=== PATIENT | male | born 1995 | race African-American/Black ===

== ENCOUNTER 2017-11-13 14:26 | Emergency (ER) | payer SELFPAY ==
[2017-11-13 14:34] VITALS: BP 134/75; PULSE 80; TEMP 98.5; BMI 21.7
--- NOTE | 2017-11-13 15:03 | PDOC ---
History of Present Illness - General Chief Complaint: Chest Pain Stated Complaint: CHEST PAIN Time Seen by Provider: 11/13/17 14:43 History Source: Patient Exam Limitations: No Limitations - History of Present Illness Initial Comments: 11/13/17 14:57 This is a 22-year-old male without medical history who presents to emergency department with a brief episode of midsternal chest pain while walking in the cold. Patient states the pain worsens when he took a deep breath. Was at this point he activated EMS to come to the emergency department for evaluation. Since his arrival in the emergency department the pain is decreased and he now rates the pain 2/10 and describes as "a thumbtack is being stuck into my chest. " He denies feeling short of breath at the time. He continues to deny shortness of breath, fevers, chills, nausea, vomiting, diaphoresis, abdominal pain. Past medical history: Denies Past surgical history: Denies NKDA Tobacco: 3 cigarettes daily EtOH: Denies Illicits: Denies Timing/Duration: reports: just prior to arrival Past History - Past Medical History Allergies/Adverse Reactions: Allergies Allergy/AdvReac Type Severity Reaction Status Date / Time No Known Allergies Allergy Verified 11/13/17 14:34 Home Medications: Ambulatory Orders NK [No Known Home Medication] 11/13/17 COPD: No - Suicide/Smoking/Psychosocial Hx Smoking History: Never smoked Hx Alcohol Use: Yes (SOCIAL) Drug/Substance Use Hx: No Substance Use Type: None Review of Systems - Review of Systems Able to Perform ROS?: Yes Is the patient limited O[place]i proficient: No Constitutional: No: Symptoms Reported Respiratory: No: Symptoms reported ABD/GI: No: Symptoms Reported : No: Symptoms Reported Musculoskeletal: No: Symptoms Reported Integumentary: No: Symptoms Reported Neurological: No: Symptoms reported *Physical Exam - Vital Signs Last Vital Signs Temp Pulse Resp BP Pulse Ox 98.5 F 80 20 134/75 100 11/13/17 14:29 11/13/17 14:29 11/13/17 14:29 11/13/17 14:29 11/13/17 14:29 - Physical Exam General Appearance: Yes: Appropriately Dressed. No: Apparent Distress HEENT: positive: LEXY, Normal ENT Inspection Neck: positive: Trachea midline, Supple Respiratory/Chest: positive: Lungs Clear, Normal Breath Sounds. negative: Respiratory Distress, Accessory Muscle Use Cardiovascular: positive: Regular Rhythm, Regular Rate, S1, S2. negative: Edema , Murmur Gastrointestinal/Abdominal: positive: Normal Bowel Sounds, Soft. negative: Tender Musculoskeletal: positive: Normal Inspection. negative: CVA Tenderness Extremity: positive: Normal Capillary Refill, Normal Inspection, Normal Range of Motion Integumentary: positive: Normal Color, Dry, Warm Neurologic: positive: manager supply II-XII NML intact, Fully Oriented, Alert, Normal Mood/ Affect, Normal Response, Motor Strength 5/5 Medical Decision Making - Medical Decision Making 11/13/17 15:00 A/P: This is a 22-year-old male without medical history who presents to emergency department with a brief episode of midsternal chest pain while walking in the cold. Patient states the pain worsens when he took a deep breath. Was at this point he activated EMS to come to the emergency department for evaluation. Since his arrival in the emergency department the pain is decreased and he now rates the pain 2/10 and describes as "a thumbtack is being stuck into my chest. " He denies feeling short of breath at the time. He continues to deny shortness of breath, fevers, chills, nausea, vomiting, diaphoresis, abdominal pain. Examination the oropharynx reveals clear without any erythema or exudates. Lungs clear to auscultation bilaterally. Chest is nontender. RRR. S1 and S2 are present. No murmurs, rub or gallop noted. Normoactive bowel sounds. Abdomen soft nontender nondistended. Differential diagnoses include pneumonia, bronchitis, atypical chest pain EKG as read by me: Normal sinus rhythm at a rate of 85. Pneumonia bronchitis a low in the differential given the patient is afebrile and is not coughing. I'll perform a chest x-ray. After x-rays read I will reevaluate the patient with likely discharge. Smoking cessation counseling offer to patient who currently refuses at this time. Patient states she is unwilling to quit at this time is recommended that he be's with his primary doctor should he choose to wait smoking and needs help. 11/13/17 15:14 Chest x-ray as read by Dr. Smith: 2 views revealed clear lungs, normal mediastinum and sharp angles. The bones and soft tissues are intact. Impression: No acute chest pathology. No comparison studies. Given normal chest x-ray and normal EKG unlikeliness a cardiac event. Also the patient follow-up with his primary doctor for further evaluation should he started to experience chest pain again. I discussed the physical exam findings, ancillary test results and final diagnoses with the patient. I answered all of the patient's questions. The patient was satisfied with the care received and felt comfortable with the discharge plan and treatment plan. The patient will call his doctor within 96 hours to arrange follow-up and will return to the Emergency Department with any new, persistent or worsening symptoms. *DC/Admit/Observation/Transfer Diagnosis at time of Disposition: Atypical chest pain - Discharge Dispostion Disposition: HOME Condition at time of disposition: Stable Admit: No - Referrals - Patient Instructions Printed Discharge Instructions: DI for Atypical Chest Pain Additional Instructions: Stop smoking. Follow-up with her regular doctor for further evaluation of this pain. Your EKG and chest x-ray were normal therefore is unlikely had a cardiac event. Return to emergency department for chest pain, shortness of breath, dizziness, lightheadedness, increased sweating, anxiety, or any other concerns. Thank you very much for choosing us to provide your emergent healthcare needs. - Post Discharge Activity
--- NOTE | 2017-11-17 12:31 | EKG ---
Test Reason : Blood Pressure : / mmHG Vent. Rate : 085 BPM Atrial Rate : 085 BPM P-R Int : 154 ms QRS Dur : 100 ms QT Int : 362 ms P-R-T Axes : 077 085 078 degrees QTc Int : 430 ms NORMAL SINUS RHYTHM INCOMPLETE RIGHT BUNDLE BRANCH BLOCK BORDERLINE ECG NO PREVIOUS ECGS AVAILABLE Confirmed by ALAYNA AREVALO, ROBY ([id number]) on 11/17/2017 12:31:12 PM Referred By: Confirmed By:ROBY CATALAN MD
== END 2017-11-13 15:33 | disposition home or self-care (01) ==
LOC: JERFT 14:26
DX: R07.89 Other chest pain (principal)
CPT/HCPCS: 71020-TC; 93005; 93010; 99281-25